=== PATIENT | male | born 1955 | race African-American/Black ===

== ENCOUNTER 2016-08-25 10:33 | Day surgery (SDC) | payer OTHER ==
[~2016-08-25] VITALS: Ht 188 cm; Wt 98.9 kg
[~2016-08-25 10:33] MED LIST: FEXO1TAB4 PO; LANS30CA14 PO; LORA5TAB8 PO; MOME17SP10 NS; TRAZ-115 PO
[2016-08-25] MEDS ORDERED: Propofol 10,000 mCg/mL 20 mL Inj ONE (10:34)
[2016-08-25 11:03] VITALS: BP 115/74; RESP 14; O2SAT 97
--- NOTE | 2016-08-25 11:18 | PCM.HPANE ---
Patient Data Date of Service: Aug 25, 2016 Surgeon Admitting Provider: Attending Provider:Farhan Brady MD Primary Care Physician:Galo Hooker DO Other Provider:Lm Gan Anesthesia Reason for Visit Colon Cancer Screening, Gerd Ht/WT & BMI Height (Feet): 6 Height (Inches): 2 Weight (Kilograms): 98.88 Body Mass Index 27.00 Allergies Coded Allergies: meperidine (Verified Allergy, Mild, rash, 08/23/16) Past Anesthesia History Anesthesia History: Denies:: Abnormal Airway, Anesthesia Reactions, Difficult Intubation, Fam Anesthesia Reaction, Fam Malignant Hypertherm, Malignant Hyperthermia Diabetes History Hx Diabetes?: No MRSA MRSA: No Medications Hypertension Medication: No Home Meds Incl Beta Solo: No Reported Medications Trazodone 50 Mg Itkgst12 Mg PO HS Ref 0 08/23/[address] (Prevacid)30 Mg [id number] Mg PO DAILY Ref 0 08/23/16 Mometasone Furoate 50 Mcg [email or web address] Sprays NS 08/23/16 Loratadine ODT (Claritin ODT)5 Mg Tablet5 Mg PO DAILY 08/23/16 Discontinued Reported Medications Fexofenadine/Pseudoephedrine ER (Porsche-D 12 Hour)1 Each Tablet1 Tablet PO BID 08/23/16 History History of ENT Problems?: No HEENT History: Positive for:: Hearing Problem (mild hearing loss) Denies:: Abnormal Airway Difficult Intubation Denture Type: None Teeth Condition: Within Normal Limits Hx of Heart Problems?: No Cardiovascular History: Denies:: Chest Pain Coronary Artery Disease Hypertension Hx of Respiratory Problem?: No Respiratory History: Positive for:: Asthma Denies:: Cough Hx Neurologic Problems?: No Neurological History: Denies:: CVA Hx of GI Problems?: Yes Gastrointestinal History: Positive for:: Gastroesphageal Reflux Hx of Problems?: No HX of Peritoneal Dialysis: No Hx Musculoskeletal Problems?: No Hx of Psycho/Social Problems?: No Hx Surgeries?: Yes (laminectomy) Hx Any Other Health Problems?: Yes Hx Diabetes: No Hx Alcohol Use: Yes (comes) Smoking Status: Former Smoker Stop/Bang Treated for Sleep Apnea?: No Do You Have a CPAP Machine?: No S-Snoring: Do You Snore Loudly: No T-Tired: feel tired, fatigued: No P-Blood Pressure: treated: No B- Body Mass Index > 35 kg/m2: Yes A- Age over 50: Yes N- Neck Large Circumference: No G- Gender Male: Yes LEEANN Risk Assessment: High Risk, =/>3 Yes Risk Assessment Category Category 1A: Patient has history of documented sleep apnea, and HAS NOT received any narcotic, sedative or anesthesia administration during this stay. Category 1B: Patient has history of documented sleep apnea, and HAS received any narcotic , sedative or anesthesia administration during this stay Category 2: Patient has SUSPECTED Obstructive Sleep Apnea, and HAS received any narcotic , sedative or anesthesia administration during this stay. Category 3: Patient has SUSPECTED Obstructive Sleep Apnea and HAS NOT received narcotic, sedative or anesthesia administration during this stay. Category 4: Outpatient in Procedural Areas with known sleep apnea or who screen positive for High Risk via the STOP/BANG questionnaire. Exam Exam Vital Signs Vital Signs Date Time Temp Pulse Resp B/P Pulse Ox O2 Delivery O2 Flow Rate FiO2 08/25/16 11:03 36.6 14 115/74 97 Room Air General Appearance: Alert, Oriented X3, Cooperative HEENT/AIRWAY: MP 2, Neck Movement (Full), Mouth Opening (Wide) Lungs: Clear to Auscultation, Normal Air Movement Heart: Regular Rate/Rhythm, Normal S1, Normal S2 Plan Impression Patient chart reviewed, patient interviewed and anesthestic plan with risks, benefits, and alternatives discussed, and informed consent obtained. ASA Physical Status: ASA2 Mod Systemic Disease Anesthetic Plan: MAC Bene/Risks/Altern/Consents: Yes HP Complete Prior to Induction: Yes Dioni Baer MD Aug 25, 2016 11:18
[2016-08-25] MEDS: Lactated Ringer's 1,000 ML IV ONE ×2 (11:30→11:58)
--- NOTE | 2016-08-25 11:39 | PCM.ENDEGD ---
EGD Date of Service: Aug 25, 2016 Physician Farhan Brady MD Pre Procedure Diagnosis: Reflux Post Procedure Dx & Findings: Gastritis duodenal erosions Procedure Esophagogastroduodenoscopy PROCEDURE IN DETAIL: After proper sedation, Olympus video endoscope was inserted into patient's mouth and esophagus was successfully intubated. Scope introduced esophagus. Esophagus showed normal shiny whitish mucosa consistent with squamous cell component. Z line was intact at 45 cm from the incisors. Scope further advanced to the stomach. Stomach showed patchy redness edema and atrophy consistent with gastritis. Biopsies obtained. Cardia fundus body antrum pylorus were all visualized. Retroflexion was done. Stomach was easily inflated and deflatable using air. Scope further advanced to the distal duodenum. Duodenal bulb showed edema and superficial erosion. Biopsies obtained. Distal Duodenum revealed normal villous structures with normal appearing folds without any mass ulcer erosion. Impression Gastritis duodenal erosions Recommendation Await biopsies Presedation Assessment Risks and Benefits Informed consent was obtained from the patient after all risks and benefits including but not limited to drug reaction, infection, pain, bleeding, perforation, as well as alternatives were discussed. Patient monitoring Continuous pulse oximetry, cardiac monitoring, blood pressure monitoring, IV access, and oxygen at 2L per nasal cannula. Complications There were no periprocedural complications identified. Post Procedure Plan Post Procedure Recommendations 1. Restrict activities today. 2. Resume normal activities in the morning. 3. Resume medications. 4. GERD behavioral modification: - Avoid fatty, acidic, spicy, large meals - Do not lie down after meals - Do not eat or drink anything for at least 2 1/2 hours before going to bed at night - Discontinue tobacco and alcohol - Decrease or avoid caffeine - Avoid chocolate and mints - Decrease weight - Avoid aspirin and non steroidal anti-inflammatory agents (NSAID) such as Aleve, Advil, Mobic, Naproxen, Ibuprofen, etc 5. Add proton pump inhibitor. Take 30 minutes before 1st meal of the day. 6. Patient informed of normal post procedure side effects as bloating, drowsiness, blood streaking in the stool 7. If gastric biopsy reveal H.pylori, continue with appropriate treatment 8. If small bowel biopsy reveals celiac, continue with appropriate treatment 9. Please don't hesitate to call me with any questions Farhan Brady MD Aug 25, 2016 11:39
--- NOTE | 2016-08-25 12:00 | PCM.ENDCOL ---
Colonoscopy Date of Service: Aug 25, 2016 Physician Farhan Brady MD Pre Procedure Diagnosis: History of polyp Post Procedure Dx & Findings: Polyp hemorrhoids diverticuli Procedure Colonoscopy PROCEDURE IN DETAIL: Prep adequate Withdrawal time 11 minutes After unremarkable rectal examination the Olympus video colonoscope was inserted patient's anal canal and was advanced to cecum. Landmarks were identified including the ileocecal valve and appendiceal orifice. Scope was withdrawn systematically. Visualized colonic mucosa showed healthy shiny mucosa with normal healthy-appearing vasculature. In the ascending colon, there was a 4 mm polyp which is removed completely using cold snare. Patient had multiple diverticuli from the distal sigmoid colon all the way into the proximal ascending colon. Multiple noted medium- size mostly. In the rectum retroflexion was done which showed hemorrhoids. Anal canal was inspected carefully on the way out and hemorrhoids noted. Impression Polyp 1 as was complete removal History of polyp Diverticuli Hemorrhoids Recommendation Repeat colonoscopy 5 years Diverticular diet Presedation Assessment Risks and Benefits Informed consent was obtained from the patient after all risks and benefits including but not limited to drug reaction, infection, pain, bleeding, perforation, as well as alternatives were discussed. Patient monitoring Continuous pulse oximetry, cardiac monitoring, blood pressure monitoring, IV access, and oxygen at 2L per nasal cannula. Complications There were no periprocedural complications identified. Post Procedure Plan Post Procedure Recommendations 1. Restrict activities today. 2. Resume normal activities in the morning. 3. Resume medications. 4. Patient informed of normal post procedure side effects as bloating, drowsiness, blood streaking in the stool. 5. average risk CRCS. If colon polyps come back as: -Hyperplastic- can repeat colonoscopy in 10 years -Tubular adenoma- repeat colonoscopy in 5 years -Tubulovillous/villous adenoma- repeat colonoscopy in 3 years -If any dysplasia- return to clinic as soon as possible 6. Please don't hesitate to call me with any questions. Farhan Brady MD Aug 25, 2016 11:59
[2016-08-25 12:02] VITALS: BP 85/55; PULSE 68; RESP 16; O2SAT 100
[2016-08-25 12:10] VITALS: BP 105/74; PULSE 64; RESP 16; O2SAT 100
[2016-08-25 12:20] VITALS: BP 120/88; PULSE 58; RESP 16; O2SAT 100
--- NOTE | 2016-08-25 12:24 | PCM.ANEP1 ---
Post Anesthesia PACU Phase 1 Assessment Date of Service: Aug 25, 2016 Vital Signs Vital Signs Date Time Temp Pulse Resp B/P Pulse Ox O2 Delivery O2 Flow Rate FiO2 08/25/16 12:20 58 16 120/88 100 Room Air 08/25/16 12:10 64 16 105/74 100 Room Air 08/25/16 12:02 68 16 85/55 100 Room Air 08/25/16 11:03 36.6 14 115/74 97 Room Air Anesthetic Administered: MAC Level of Alertness: Sleepy, easy to arouse LO's with Equal Strength: Yes Pain: No Nausea or Vomiting: No CV Function & Hydration Stable: Yes Airway Device: Oxygen Delivery: Room Air Lungs: Normal Air Movement PACU Phase 2 Assessment Complications: No Follow up Care: No Patient Instructions Provided: N/A Dioni Baer MD Aug 25, 2016 12:24
[2016-08-25 12:30] VITALS: BP 124/85; PULSE 56; RESP 16; O2SAT 100
--- NOTE | 2016-08-29 10:31 | PATH ---
SURGICAL PATHOLOGY Attending Physician:Farhan Brady M.D. CASE STATUS: Signed Out PATIENT NAME: SUPA OLMOS PID: [id number] : 1955 DATE COLLECTED:08/25/2016 19:38 SPECIMEN: 1: Duodenum, Biopsy 2: Gastric, Biopsy 3: Colon, Polyp CLINICAL HISTORY: 1). DUODENUM BIOPSY 2). GASTRIC BIOPSY 3). ASCENDING COLON POLYP FINAL DIAGNOSIS: 1.DUODENUM BIOPSY: CHANGES OF CHRONIC DUODENITIS, FOCALLY ACTIVE. Negative for evidence of celiac disease. Negative for dysplasia and malignancy. 2.GASTRIC BIOPSY: MILD CHRONIC GASTRITIS INVOLVING ANTRAL MUCOSA. Negative for evidence of Helicobacter on H&E stain. Negative for intestinal metaplasia. Negative for dysplasia and malignancy. 3.ASCENDING COLON POLYP: POLYPOID-SHAPED FRAGMENT OF COLON MUCOSA CONSISTENT WITH MUCOSAL POLYPOID REDUNDANCY. Negative for evidence of neoplasm or hyperplasia on multiple serial sections. ICD10 K29.70 GROSS DESCRIPTION: Received are three formalin-filled containers, each labeled with the patient' s name. 1. Received in formalin, labeled with the patient' s name and "duodenum BX", are two fragments of woodruff, soft tissue ranging in size from 0.1 x 0.1 x 0.1 cm to 0.2 x 0.2 x 0.2 cm. All fragments are totally submitted in cassette 1A. 2. Received in formalin, labeled with the patient' s name and "gastric BX", is one fragment of woodruff, soft tissue measuring 0.2 x 0.2 x 0.1 cm. The fragment is totally submitted in cassette 2A. 3. Received in formalin, labeled with the patient' s name and "ascending colon polyp", is one fragment of woodruff, soft tissue measuring 0.2 x 0.2 x 0.2 cm. The fragment is totally submitted in cassette 3A. ([id number]) MICRO DESCRIPTION: See diagnosis. ICD-9 CODES: CPT CODES: 1: 57926 2: 52010 3: 67513 Electronically Signed Out Jose Daniel Noyola MD [facility] [address], [place] [address] Technical component performed at [facility], [address], [place], [address]
== END 2016-08-25 23:59 | disposition home or self-care (01) ==
LOC: END 10:33
PROVIDERS: ATTEND Internal Medicine
DX: Z12.11 Encounter for screening for malignant neoplasm of colon (principal); Z86.010 Personal history of colon polyps; K63.5 Polyp of colon; K64.9 Unspecified hemorrhoids; K57.30 Diverticulosis of large intestine without perforation or abscess without bleeding; K29.80 Duodenitis without bleeding; K29.50 Unspecified chronic gastritis without bleeding; K21.9 Gastro-esophageal reflux disease without esophagitis; K59.00 Constipation, unspecified; M54.2 Cervicalgia; J30.9 Allergic rhinitis, unspecified; Z87.891 Personal history of nicotine dependence
CPT/HCPCS: 43239; 45385; J7120